=== PATIENT | male | born 1985 | race Caucasian/White ===

== ENCOUNTER 2023-11-06 15:27 | Inpatient (IN) | payer OTHER ==
[2023-11-06 15:52] VITALS: BMI 24.4
[2023-11-06] MEDS ORDERED: MAGNESIUM HYDROX 2400MG/30ML ORAL SUSPENSION 30 ML CUP PO PRN (19:14)
[2023-11-06] MEDS ORDERED: MAG HYDROX/AL HYDROX/SIMETH 30 ML UNIT-DOSE CUP PO PRN (19:14)
[2023-11-06] MEDS ORDERED: METHOCARBAMOL 500 MG TABLET PO PRN (19:14)
[2023-11-06] MEDS ORDERED: BENZONATATE 200 MG CAPSULE PO PRN (19:14)
[2023-11-06] MEDS ORDERED: hydrOXYzine PAMOATE 25 MG CAPSULE (FP) PO PRN (19:14)
[2023-11-06] MEDS ORDERED: DICYCLOMINE HCL 10 MG CAPSULE PO PRN (19:14)
[2023-11-06] MEDS ORDERED: POLYETHYLENE GLYCOL (HEALTHYLAX) 3350 17 GM PACKET PO PRN (19:14)
[2023-11-06] MEDS ORDERED: ACETAMINOPHEN 325 MG TABLET (FP) PO PRN (19:14)
[2023-11-06] MEDS ORDERED: LOPERAMIDE HCL 2 MG CAPSULE PO PRN (19:14)
[2023-11-06] MEDS ORDERED: ONDANSETRON *ODT* 4 MG TABLET SL PRN (19:14)
[2023-11-06] MEDS ORDERED: guaiFENesin 600 MG TABLET.ER (FP) PO PRN (19:14)
[2023-11-06] MEDS ORDERED: BISMUTH SUBSALICYLATE 524 MG/30 ML PO PRN (19:14)
[2023-11-06] MEDS ORDERED: BENZOCAINE/MENTHOL (CHLORASEPTIC ) LOZENGE MM PRN (19:14)
[2023-11-06] MEDS: chlordiazePOXIDE HCL 25 MG CAPSULE PO PRN (21:02)
[2023-11-06] MEDS: chlordiazePOXIDE HCL 25 MG CAPSULE PO ONE (21:04)
[2023-11-06] MEDS: MELATONIN 5 MG TABLETS PO SCH (22:21)
[2023-11-06] MEDS: THIAMINE 100 MG TABLET PO SCH (22:25)
[2023-11-06] MEDS: chlordiazePOXIDE HCL 25 MG CAPSULE PO SCH (22:25)
[2023-11-07] MEDS: NICOTINE 7 MG/24 HOURS TOPICAL PATCH TD SCH (10:22)
[2023-11-07] MEDS: PRENATAL VITAMINS W/ FOLIC ACID TABLET (FP) PO SCH (10:22)
[2023-11-08] MEDS: chlordiazePOXIDE HCL 25 MG CAPSULE PO SCH (05:40)
[2023-11-08 16:47] VITALS: BP 108/60; PULSE 87; RESP 18; TEMP 98
[2023-11-09] MEDS ORDERED: chlordiazePOXIDE HCL 10 MG CAPSULE PO PRN
[2023-11-09] MEDS ORDERED: chlordiazePOXIDE HCL 10 MG CAPSULE PO SCH (05:00)
[2023-11-10] MEDS ORDERED: chlordiazePOXIDE HCL 10 MG CAPSULE PO SCH (05:00)
[2023-11-11] MEDS ORDERED: chlordiazePOXIDE HCL 10 MG CAPSULE PO ONE (05:00)
== END 2023-11-08 18:41 | disposition left against medical advice (07) | DRG 894 ==
LOC: YASAS 15:27 → Y3N 20:37
PROVIDERS: ADMIT Allergy & Immunology; ATTEND Surgery
PROC: HZ2ZZZZ Detoxification Services for Substance Abuse Treatment (ICD-10-PCS; principal; 2023-11-06)
DX: F10.230 Alcohol dependence with withdrawal, uncomplicated (principal); F14.20 Cocaine dependence, uncomplicated; F17.210 Nicotine dependence, cigarettes, uncomplicated; F31.9 Bipolar disorder, unspecified; Z91.148 Patient's other noncompliance with medication regimen for other reason; Z28.310 Unvaccinated for COVID-19; Z28.9 Immunization not carried out for unspecified reason; Z88.8 Allergy status to other drugs, medicaments and biological substances
CPT/HCPCS: 80305

== ENCOUNTER 2024-10-30 06:26 | Emergency (ER) | payer OTHER ==
[2024-10-30 06:46] VITALS: BMI 26.4
[2024-10-30 07:54] LABS: ABSOLUTE IMMATURE GRANULOCYTES 0.07 x10^3/uL (0.0-0.031); BASOPHILS # 0.04 x10^3/uL (0.01-0.08); EOSINOPHIL % 0.9 % (0.8-7.0); EOSINOPHILS # 0.11 x10^3/uL (0.04-0.54); HEMATOCRIT 42.5 % (40.1-51.0); MCHC 32.9 g/dl (32.3-36.5); MEAN CELL VOLUME 88.2 fl (79.0-92.2); MEAN PLT VOLUME 9.7 fl (9.4-12.4); MONOCYTE # 1.15 x10^3/uL (0.30-0.82); MONOCYTE % 9.7 % (5.3-12.2); PLATELET COUNT 312 x10^3/uL (163-337); RDW 14.4 % (12.1-15.9)
[2024-10-30] MEDS ORDERED: IBUPROFEN 400 MG TABLET (FP) PO ONE (08:03)
[2024-10-30] MEDS: IBUPROFEN 400 MG TABLET (FP) PO ONE (08:05)
[2024-10-30 08:14] LABS: CHLORIDE 100 mmol/L (98-107); SODIUM 137 mmol/L (136-145)
[2024-10-30 08:16] LABS: CALCIUM 10.1 mg/dL (8.5-10.1)
[2024-10-30 08:17] LABS: ALBUMIN 4.6 g/dl (3.4-5.0); ANION GAP 6 mmol/L (4-13); BLOOD UREA NITROGEN 10.2 mg/dL (7-18); CO2 30 mmol/L (21-32); GLUCOSE,RANDOM 94 mg/dL (74-106)
[2024-10-30 08:20] LABS: CREATININE 0.9 mg/dL (0.55-1.3); SGOT/AST 96 U/L (15-37); SGPT/ALT 57 U/L (13-61)
[2024-10-30 08:21] LABS: BILIRUBIN,TOTAL 0.9 mg/dL (0.2-1)
[2024-10-30 08:22] LABS: TOT PROT 8.5 g/dl (6.4-8.2)
[2024-10-30 08:23] LABS: ALK PHOS 108 U/L (45-117)
[2024-10-30] MEDS ORDERED: GABAPENTIN 300 MG CAPSULE ONE (09:19)
[2024-10-30] MEDS: GABAPENTIN 300 MG CAPSULE PO ONE (09:20)
[2024-10-30 09:45] LABS: EPI CELLS 4 /uL (0-25.1); HYALINE CASTS 0 /uL (0-3.1); PH,URINE 5.5 (5.0-8.0); URINE APPEARANCE TURBID; URINE BACTERIA 1 /uL (0-1359); URINE BILIRUBIN NEGATIVE (NEGATIVE); URINE COLOR DK YELLOW; URINE GLUCOSE (UA) NEGATIVE (NEGATIVE); URINE KETONE TRACE (NEGATIVE); URINE LEUK ESTERASE NEGATIVE (NEGATIVE); URINE NITRITE NEGATIVE (NEGATIVE); URINE PROTEIN 1+ (NEGATIVE); URINE RBC 24 /uL (0-23.9); URINE WBC 6 /uL (0-25.8)
[2024-10-30 09:49] LABS: URINE AMPHETAMINES NEGATIVE (NEGATIVE); URINE BARBITURATES NEGATIVE (NEGATIVE)
[2024-10-30 09:50] LABS: COCAINE, UR POSITIVE (NEGATIVE); METHADONE, UR NEGATIVE (NEGATIVE); OPIATES, URI NEGATIVE (NEGATIVE); PHENCYCLIDINE,URINE NEGATIVE (NEGATIVE); URINE BENZODIAZEPINES POSITIVE (NEGATIVE)
[2024-10-30 11:31] VITALS: BP 108/66; PULSE 93; RESP 20; TEMP 98
[2024-10-30] MEDS ORDERED: ALPRAZolam 0.25 MG TABLET ONE (13:07)
[2024-10-30] MEDS: ALPRAZolam 0.25 MG TABLET PO PRN (13:09)
== END 2024-10-30 16:04 | disposition home or self-care (01) ==
LOC: JER 06:26
DX: R45.851 Suicidal ideations (principal); F10.10 Alcohol abuse, uncomplicated; F55.8 Abuse of other non-psychoactive substances
CPT/HCPCS: 36415; 80053; 80307; 81003; 84443; 85025; 87086; 93005; 93010; 99284-25

== ENCOUNTER 2024-10-30 18:53 | Inpatient (IN) | payer OTHER ==
[2024-10-30 19:23] VITALS: BMI 26.4
[2024-10-30] MEDS ORDERED: chlordiazePOXIDE HCL 25 MG CAPSULE PO PRN (19:57)
[2024-10-30] MEDS ORDERED: BENZOCAINE/MENTHOL (CHLORASEPTIC ) LOZENGE MM PRN (20:19)
[2024-10-30] MEDS ORDERED: IBUPROFEN 400 MG TABLET (FP) PO PRN (20:19)
[2024-10-30] MEDS ORDERED: NALOXONE (NARCAN) HCL 4 MG/0.1 ML SPRAY NS PRN (20:19)
[2024-10-30] MEDS ORDERED: BISMUTH SUBSALICYLATE 524 MG/30 ML PO PRN (20:19)
[2024-10-30] MEDS ORDERED: ONDANSETRON *ODT* 4 MG TABLET SL PRN (20:19)
[2024-10-30] MEDS ORDERED: NICOTINE POLACRILEX 2 MG GUM BUC PRN (20:19)
[2024-10-30] MEDS ORDERED: MAGNESIUM HYDROX 2400MG/30ML ORAL SUSPENSION 30 ML CUP PO PRN (20:19)
[2024-10-30] MEDS ORDERED: POLYETHYLENE GLYCOL (HEALTHYLAX) 3350 17 GM PACKET PO PRN (20:19)
[2024-10-30] MEDS ORDERED: DICYCLOMINE HCL 10 MG CAPSULE PO PRN (20:19)
[2024-10-30] MEDS ORDERED: guaiFENesin 600 MG TABLET.ER (FP) PO PRN (20:19)
[2024-10-30] MEDS ORDERED: IBUPROFEN 600 MG TABLET (FP) PO PRN (20:19)
[2024-10-30] MEDS ORDERED: LOPERAMIDE HCL 2 MG CAPSULE PO PRN (20:19)
[2024-10-30] MEDS ORDERED: BENZONATATE 200 MG CAPSULE PO PRN (20:19)
[2024-10-30] MEDS ORDERED: NICOTINE POLACRILEX 2 MG LOZENGE BC PRN (20:19)
[2024-10-30] MEDS: MELATONIN 5 MG TABLETS PO SCH (22:31)
[2024-10-30] MEDS: chlordiazePOXIDE HCL 25 MG CAPSULE PO SCH (22:31)
[2024-10-30] MEDS: THIAMINE 100 MG TABLET PO SCH (22:31)
[2024-10-31] MEDS: PRENATAL VITAMINS W/ FOLIC ACID TABLET (FP) PO SCH (09:48)
[2024-10-31 10:23] LABS: HEMATOCRIT 38.9 % (40.1-51.0); HEMOGLOBIN 12.4 g/dL (13.7-17.5); MCHC 31.9 g/dl (32.3-36.5); MEAN CELL VOLUME 89.2 fl (79.0-92.2); MEAN PLT VOLUME 10.5 fl (9.4-12.4); PLATELET COUNT 268 x10^3/uL (163-337); RDW 14.3 % (12.1-15.9)
[2024-10-31] MEDS: GABAPENTIN 100 MG CAPSULE PO SCH (10:28)
[2024-10-31 10:30] LABS: POTASSIUM 3.7 mmol/L (3.5-5.1)
[2024-10-31 10:43] LABS: CALCIUM 9.5 mg/dL (8.5-10.1)
[2024-10-31 10:44] LABS: BLOOD UREA NITROGEN 15.9 mg/dL (7-18)
[2024-10-31 10:47] LABS: CREATININE 0.8 mg/dL (0.55-1.3)
[2024-10-31 10:48] LABS: BILIRUBIN,TOTAL 0.7 mg/dL (0.2-1); TOT PROT 6.6 g/dl (6.4-8.2)
[2024-10-31 10:50] LABS: ALBUMIN 3.6 g/dl (3.4-5.0)
[2024-11-01] MEDS: chlordiazePOXIDE HCL 25 MG CAPSULE PO SCH (05:44)
[2024-11-02] MEDS ORDERED: chlordiazePOXIDE HCL 10 MG CAPSULE PO PRN
[2024-11-02] MEDS: chlordiazePOXIDE HCL 10 MG CAPSULE PO SCH (06:00)
[2024-11-02] MEDS: GABAPENTIN 100 MG CAPSULE PO SCH (10:34)
[2024-11-02] MEDS: NAPROXEN 500 MG TABLET PO SCH (10:34)
[2024-11-02] MEDS: BENZOCAINE 20 % GEL TUBE MM PRN (15:22)
[2024-11-02] MEDS: METHOCARBAMOL 500 MG TABLET PO PRN (22:46)
[2024-11-03] MEDS: chlordiazePOXIDE HCL 10 MG CAPSULE PO SCH (05:21)
[2024-11-03] MEDS: ACETAMINOPHEN 325 MG TABLET (FP) PO PRN (12:20)
[2024-11-04] MEDS: chlordiazePOXIDE HCL 10 MG CAPSULE PO ONE (05:00)
[2024-11-05] MEDS: HYDROCORTISONE 1% TOPICAL CREAM 30 GM TUBE TP PRN (07:24)
[2024-11-05] MEDS ORDERED: TUBERCULIN PPD 5 TU/0.1ML VIAL ID ONE (13:39)
[2024-11-05] MEDS: TUBERCULIN PPD 5 TU/0.1ML VIAL ID ONE (13:39)
[2024-11-07] MEDS: BENZOCAINE 20 % GEL TUBE MM PRN (22:14)
[2024-11-08] MEDS: IBUPROFEN 400 MG TABLET (FP) PO ONE (01:30)
[2024-11-08] MEDS: GABAPENTIN 100 MG CAPSULE PO SCH (14:49)
[2024-11-09] MEDS: NALTREXONE HCL 50 MG TABLET PO ONE (15:52)
[2024-11-09] MEDS: CLOTRIMAZOLE 1% CREAM TP SCH (21:11)
[2024-11-09] MEDS: BACLOFEN 10 MG TABLET (FP) PO SCH (21:13)
[2024-11-10] MEDS: SELENIUM SULFIDE 2.25% 180 ML SHAMPOO TP PRN (06:11)
[2024-11-10] MEDS: NALTREXONE HCL 50 MG TABLET PO SCH (09:34)
[2024-11-13] MEDS: hydrOXYzine PAMOATE 25 MG CAPSULE (FP) PO ONE (16:38)
[2024-11-15] MEDS: IBUPROFEN 400 MG TABLET (FP) PO ONE (01:22)
[2024-11-15] MEDS: hydrOXYzine PAMOATE 50 MG CAPSULE (FP) PO PRN (15:04)
[2024-11-16] MEDS: IBUPROFEN 600 MG TABLET (FP) PO PRN (18:21)
[2024-11-17] MEDS: AMOX TR/POT CLAV 875MG/125MG TABLETS (FP) PO SCH (17:37)
[2024-11-18] MEDS: OLANZapine 10 MG TABLET PO SCH (21:18)
[2024-11-24] MEDS: BENZOCAINE/MENTH/CETYLPYRD CL 1 EACH LOZENGE MM PRN (19:04)
[2024-11-26] MEDS: MAG HYDROX/AL HYDROX/SIMETH 30 ML UNIT-DOSE CUP PO PRN (19:57)
[2024-11-27] MEDS ORDERED: CLOTRIMAZOLE 1% CREAM TP PRN (09:12)
[2024-11-30] MEDS: CARBAMIDE PEROXIDE 6.5% OTIC 15 ML BOTTLE AD SCH (21:33)
[2024-12-01 06:48] VITALS: BP 111/77; PULSE 73; RESP 18; TEMP 97.6
== END 2024-12-01 10:54 | disposition home or self-care (01) | DRG 895 ==
LOC: YASAS 18:53 → Y3N 21:18 → Y5N 11-04 13:19
PROVIDERS: ADMIT Allergy & Immunology; ATTEND Psychiatry & Neurology Pain Medicine
PROC: HZ42ZZZ Group Counseling for Substance Abuse Treatment, Cognitive-Behavioral (ICD-10-PCS; principal; 2024-10-30)
DX: F10.20 Alcohol dependence, uncomplicated (principal); F14.20 Cocaine dependence, uncomplicated; Z59.02 Unsheltered homelessness; F17.210 Nicotine dependence, cigarettes, uncomplicated; F31.9 Bipolar disorder, unspecified; F19.24 Other psychoactive substance dependence with psychoactive substance-induced mood disorder; B35.4 Tinea corporis; H61.21 Impacted cerumen, right ear; K08.89 Other specified disorders of teeth and supporting structures; K02.9 Dental caries, unspecified; R79.89 Other specified abnormal findings of blood chemistry; Z87.448 Personal history of other diseases of urinary system; Z88.8 Allergy status to other drugs, medicaments and biological substances
CPT/HCPCS: 0241U-QW; 36415; 80053; 80305; 80307; 85027; 86780; 87811; 93005; 93010; J0475

== ENCOUNTER 2025-01-05 15:40 | Inpatient (IN) | payer OTHER ==
[2025-01-05 16:30] VITALS: BMI 27.8
[2025-01-05] MEDS ORDERED: guaiFENesin 600 MG TABLET.ER (FP) PO PRN (16:48)
[2025-01-05] MEDS ORDERED: BISMUTH SUBSALICYLATE 524 MG/30 ML PO PRN (16:48)
[2025-01-05] MEDS ORDERED: LOPERAMIDE HCL 2 MG CAPSULE PO PRN (16:48)
[2025-01-05] MEDS ORDERED: BENZOCAINE/MENTHOL (CHLORASEPTIC ) LOZENGE MM PRN (16:48)
[2025-01-05] MEDS ORDERED: NALOXONE (NARCAN) HCL 4 MG/0.1 ML SPRAY NS PRN (16:48)
[2025-01-05] MEDS ORDERED: POLYETHYLENE GLYCOL (HEALTHYLAX) 3350 17 GM PACKET PO PRN (16:48)
[2025-01-05] MEDS ORDERED: IBUPROFEN 600 MG TABLET (FP) PO PRN (16:48)
[2025-01-05] MEDS ORDERED: MAG HYDROX/AL HYDROX/SIMETH 30 ML UNIT-DOSE CUP PO PRN (16:48)
[2025-01-05] MEDS ORDERED: IBUPROFEN 400 MG TABLET (FP) PO PRN (16:48)
[2025-01-05] MEDS ORDERED: NICOTINE POLACRILEX 2 MG LOZENGE BC PRN (16:48)
[2025-01-05] MEDS ORDERED: NICOTINE POLACRILEX 2 MG GUM BUC PRN (16:48)
[2025-01-05] MEDS ORDERED: DICYCLOMINE HCL 10 MG CAPSULE PO PRN (16:48)
[2025-01-05] MEDS ORDERED: MAGNESIUM HYDROX 2400MG/30ML ORAL SUSPENSION 30 ML CUP PO PRN (16:48)
[2025-01-05] MEDS ORDERED: ACETAMINOPHEN 325 MG TABLET (FP) PO PRN (16:48)
[2025-01-05] MEDS ORDERED: BENZONATATE 200 MG CAPSULE PO PRN (16:48)
[2025-01-05] MEDS ORDERED: ONDANSETRON *ODT* 4 MG TABLET SL PRN (16:48)
[2025-01-05] MEDS: THIAMINE 100 MG TABLET PO SCH (22:02)
[2025-01-05] MEDS: MELATONIN 5 MG TABLETS PO SCH (22:02)
[2025-01-05] MEDS: METHOCARBAMOL 500 MG TABLET PO PRN (22:03)
[2025-01-06] MEDS: PRENATAL VITAMINS W/ FOLIC ACID TABLET (FP) PO SCH (10:13)
[2025-01-06 11:39] LABS: MCHC 33.2 g/dl (32.3-36.5); MEAN CELL VOLUME 87.1 fl (79.0-92.2); MEAN PLT VOLUME 10.5 fl (9.4-12.4); RDW 12.7 % (12.1-15.9)
[2025-01-06 12:09] LABS: CO2 26 mmol/L (21-32); GLUCOSE,RANDOM 122 mg/dL (74-106)
[2025-01-06 12:12] LABS: CREATININE 1.0 mg/dL (0.55-1.3); SGOT/AST 50 U/L (15-37); SGPT/ALT 51 U/L (13-61)
[2025-01-06 12:14] LABS: TOT PROT 6.8 g/dl (6.4-8.2)
[2025-01-06 12:15] LABS: ALK PHOS 84 U/L (45-117)
[2025-01-06] MEDS: POTASSIUM CHLORIDE ORAL LIQUID 20 MEQ/15 ML PO SCH (14:41)
[2025-01-06] MEDS: hydrOXYzine PAMOATE 25 MG CAPSULE (FP) PO PRN (17:10)
[2025-01-07 11:19] LABS: CO2 27.0 mmol/L (21-32); GLUCOSE,RANDOM 107.0 mg/dL (74-106)
[2025-01-07 11:22] LABS: CREATININE 0.7 mg/dL (0.55-1.3)
[2025-01-08] MEDS: HYDROCORTISONE 1% TOPICAL OINT 30 GM TUBE TP SCH (23:06)
[2025-01-09 06:20] VITALS: RESP 16
[2025-01-09 09:12] VITALS: BP 124/83; PULSE 100; TEMP 97.5
== END 2025-01-09 10:12 | disposition home or self-care (01) | DRG 897 ==
LOC: YASAS 15:40 → Y6N 17:38
PROVIDERS: ADMIT Neuromusculoskeletal Medicine & OMM; ATTEND Allergy & Immunology
PROC: HZ2ZZZZ Detoxification Services for Substance Abuse Treatment (ICD-10-PCS; principal; 2025-01-05)
DX: F10.230 Alcohol dependence with withdrawal, uncomplicated (principal); F14.20 Cocaine dependence, uncomplicated; F31.89 Other bipolar disorder; F17.210 Nicotine dependence, cigarettes, uncomplicated; E78.5 Hyperlipidemia, unspecified; E87.6 Hypokalemia
CPT/HCPCS: 36415; 80048; 80053; 80305; 80307; 85027; 86780

== ENCOUNTER 2025-02-11 17:49 | Inpatient (IN) | payer OTHER ==
[2025-02-11 18:06] VITALS: BMI 27.8
[2025-02-11] MEDS ORDERED: MAGNESIUM HYDROX 2400MG/30ML ORAL SUSPENSION 30 ML CUP PO PRN (19:07)
[2025-02-11] MEDS ORDERED: BENZOCAINE/MENTHOL (CHLORASEPTIC ) LOZENGE MM PRN (19:07)
[2025-02-11] MEDS ORDERED: IBUPROFEN 400 MG TABLET (FP) PO PRN (19:07)
[2025-02-11] MEDS ORDERED: ONDANSETRON *ODT* 4 MG TABLET SL PRN (19:07)
[2025-02-11] MEDS ORDERED: NICOTINE POLACRILEX 2 MG GUM BUC PRN (19:07)
[2025-02-11] MEDS ORDERED: IBUPROFEN 600 MG TABLET (FP) PO PRN (19:07)
[2025-02-11] MEDS ORDERED: NALOXONE (NARCAN) HCL 4 MG/0.1 ML SPRAY NS PRN (19:07)
[2025-02-11] MEDS ORDERED: BENZONATATE 200 MG CAPSULE PO PRN (19:07)
[2025-02-11] MEDS ORDERED: guaiFENesin 600 MG TABLET.ER (FP) PO PRN (19:07)
[2025-02-11] MEDS ORDERED: POLYETHYLENE GLYCOL (HEALTHYLAX) 3350 17 GM PACKET PO PRN (19:07)
[2025-02-11] MEDS ORDERED: DICYCLOMINE HCL 10 MG CAPSULE PO PRN (19:07)
[2025-02-11] MEDS ORDERED: LOPERAMIDE HCL 2 MG CAPSULE PO PRN (19:07)
[2025-02-11] MEDS ORDERED: NICOTINE POLACRILEX 2 MG LOZENGE BC PRN (19:07)
[2025-02-11] MEDS ORDERED: ACETAMINOPHEN 325 MG TABLET (FP) ONE (19:40)
[2025-02-11] MEDS: ACETAMINOPHEN 325 MG TABLET (FP) PO PRN (19:41)
[2025-02-11] MEDS: METHOCARBAMOL 500 MG TABLET PO PRN (22:42)
[2025-02-11] MEDS: THIAMINE 100 MG TABLET PO SCH (22:42)
[2025-02-11] MEDS: MELATONIN 5 MG TABLETS PO SCH (22:42)
[2025-02-11] MEDS: MAG HYDROX/AL HYDROX/SIMETH 30 ML UNIT-DOSE CUP PO PRN (22:43)
[2025-02-12] MEDS: PRENATAL VITAMINS W/ FOLIC ACID TABLET (FP) PO SCH (10:16)
[2025-02-12 12:02] LABS: MCHC 33.0 g/dl (32.3-36.5); MEAN CELL VOLUME 87.1 fl (79.0-92.2); MEAN PLT VOLUME 10.6 fl (9.4-12.4); RDW 13.5 % (12.1-15.9)
[2025-02-12 14:19] LABS: CO2 28 mmol/L (21-32); GLUCOSE,RANDOM 92 mg/dL (74-106)
[2025-02-12 14:22] LABS: CREATININE 0.7 mg/dL (0.55-1.3); SGOT/AST 24 U/L (15-37)
[2025-02-12 14:24] LABS: TOT PROT 6.5 g/dl (6.4-8.2)
[2025-02-12 14:25] LABS: ALK PHOS 84 U/L (45-117)
[2025-02-12 14:26] LABS: SGPT/ALT 40 U/L (13-61)
[2025-02-12] MEDS: BISMUTH SUBSALICYLATE 524 MG/30 ML PO PRN (17:27)
[2025-02-14] MEDS: hydrOXYzine PAMOATE 25 MG CAPSULE (FP) PO PRN (05:01)
[2025-02-15 08:54] VITALS: TEMP 98.3
[2025-02-15 12:43] VITALS: BP 119/69; PULSE 64; RESP 17
[2025-02-15] MEDS ORDERED: MIRTAZAPINE 15 MG TABLET (FP) PO SCH (22:00)
== END 2025-02-15 13:55 | disposition home or self-care (01) | DRG 897 ==
LOC: YASAS 17:49 → Y3N 19:40
PROVIDERS: ADMIT Neuromusculoskeletal Medicine & OMM; ATTEND Allergy & Immunology
PROC: HZ2ZZZZ Detoxification Services for Substance Abuse Treatment (ICD-10-PCS; principal; 2025-02-11)
DX: F10.230 Alcohol dependence with withdrawal, uncomplicated (principal); F14.20 Cocaine dependence, uncomplicated; F31.9 Bipolar disorder, unspecified; F17.210 Nicotine dependence, cigarettes, uncomplicated
CPT/HCPCS: 36415; 80053; 80305; 80307; 85027; 86780